=== PATIENT | female | born 1955 | race Caucasian/White ===

== ENCOUNTER 2019-01-16 13:14 | Observation (INO) | payer BC ==
[2019-01-16] MEDS ORDERED: ASPIRIN 325 MG TABLET PO ONE (13:48)
--- NOTE | 2019-01-16 13:53 | Emergency Department Record ---
History of Present Illness - General Chief Complaint: Chest Pain Stated Complaint: CHEST PAIN Time Seen by Provider: 01/16/19 13:38 Source: Patient, Family Mode of Arrival: Ambulatory Limitations: No limitations - History of Present Illness Initial Comments: The patient is here due to an 18 hour hx of retrosternal CP. The onset was at work when she developed the acute onset of sharp stabbing retrosternal pain. She did feel her heart racing at the time and someone did take her pulse which they found at 170 per the patient. The heart racing lasted about 20 minutes and resolved but the pain persisted. Now she is having the discomfort with any deep breath, twisting or walking. She has had some dyspnea but none now and no sweating. The patient denies any cardiac hx. Onset/Timin -: Days(s) Pain Location: Substernal Severity: Moderate Severity scale (1-10): 4 Quality: Aching, Heaviness Consistency: Constant, Intermittent Worsens With: Movement Anginal Symptoms: Diaphoresis, Dyspnea - Related Data Home Medications Medication Instructions Recorded Confirmed Last Taken Alprazolam 0.5 mg PO QHS 01/16/19 01/16/19 1 Day Ago ~01/15/19 Aspirin [Aspirin EC] 81 mg PO DAILY 01/16/19 01/16/19 1 Day Ago ~01/15/19 Dicyclomine HCl 10 mg PO TID PRN 01/16/19 01/16/19 1 Day Ago ~01/15/19 Fluoxetine HCl [Prozac] 20 mg PO DAILY 01/16/19 01/16/19 1 Day Ago ~01/15/19 Hydrochlorothiazide [Hctz] 25 mg PO DAILY 01/16/19 01/16/19 1 Day Ago ~01/15/19 Metoprolol Succinate 25 mg PO QPM 01/16/19 01/16/19 1 Day Ago ~01/15/19 Olopatadine HCl 2.5 ml OP BID PRN 01/16/19 01/16/19 1 Day Ago ~01/15/19 Omeprazole [Prilosec] 20 mg PO DAILY 01/16/19 01/16/19 1 Day Ago ~01/15/19 Rutin/Hesp/Bioflav/C/[id number] 1 each PO DAILY 01/16/19 01/16/19 1 Day Ago [Bioflex Tablet] ~01/15/19 Turmeric/Turmeric Root Extract 1 each PO DAILY 01/16/19 01/16/19 1 Day Ago [Turmeric 500 mg Capsule] ~01/15/19 Allergies Allergy/AdvReac Type Severity Reaction Status Date / Time NO KNOWN DRUG ALLERGY Allergy HYPERSENSIT Uncoded 01/16/19 13:28 IVITY Travel Screening - Travel/Exposure Within Last 30 Days Have you traveled within the last 30 days?: No - Travel/Exposure Within Last Year Have you traveled outside the [place] in the last year?: No - Additonal Travel Details Have you been exposed to anyone with a communicable illness?: No - Travel Symptoms Symptom Screening: None Review of Systems Constitutional: Denies: Chills, Fever Eyes: Denies: Eye discharge ENT: Denies: Congestion Respiratory: Denies: Cough Cardiovascular: Reports: Chest pain. 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.) - GI Hx GI Disorders: Yes Hx Irritable Bowel: Yes - Hx Genitourinary Disorders: No - ENDOCRINE Hx Endocrine Disorders: No Hx Diabetes: No Hx Thyroid Disease: No - MUSCULOSKELETAL Hx Musculoskeletal Disorders: Yes Hx Arthritis: Yes - PSYCH Hx Psych Problems: Yes Hx Anxiety: Yes Hx Depression: Yes - HEMATOLOGY/ONCOLOGY Hx Hematology/Oncology Disorders: Yes Hx Cancer: Yes (skin under left eye) Family Medical History Any Significant Family History?: Yes Hx Heart Disease: Father, Mother, Grandparents Physical Exam - General General Appearance: Alert, Oriented x3, Cooperative, No acute distress - Head Head exam: Atraumatic, Normocephalic, Normal inspection - Eye Eye exam: Normal appearance, PERRL - ENT Throat exam: Normal inspection. negative: Tonsillar erythema, Tonsillar exudate - Neck Neck exam: Normal inspection, Full ROM. negative: Tenderness - Respiratory Respiratory exam: Normal lung sounds bilaterally, Chest wall tenderness (The CP is 100% reproducible with palpation of the anterior chest wall.). negative: Respiratory distress - Cardiovascular Cardiovascular Exam: Regular rate, Normal rhythm, Normal heart sounds. negative: Diastolic murmur - GI/Abdominal GI/Abdominal exam: Soft, Normal bowel sounds. negative: Tenderness - Extremities Extremities exam: Normal inspection, Full ROM, Normal capillary refill. negative: Calf tenderness, Pedal edema, Tenderness - Neurological Neurological exam: Alert. negative: Motor sensory deficit Course Vital Signs 01/16/19 13:16 Temperature 97.5 F L Pulse Rate 72 Respiratory 18 Rate Blood Pressure 163/98 Pulse Ox 99 - Reevaluation(s) Reevaluation #1: The patient is doing better at this time. Her pain is improved with the Toradol and she is resting comfortably and is very hemodynamically stable. I did discuss the lab results with the patient and did recommend hospital admission for the PE and chest pain. The patient does agree with the plan. I also did discuss the case with Penny (BUILDING ARCHITECTURAL DESIGNER) and she does accept the admission for Dr. Baum. 01/16/19 16:03 Medical Decision Making - Data Complexity MDM Data: Labs Ordered and/or Reviewed, X-Ray Ordered and/or Reviewed, EKG Ordered and/or Reviewed - Lab Data Result diagrams: 01/16/19 13:33 01/16/19 13:33 - EKG Data -: EKG Interpreted by Me EKG: No Acute Changes, Normal EKG - Radiology Data Radiology results: Report reviewed (Chest CT: Single embolus in R lower lobe arterial branch, positive for PE.) Disposition Disposition: Admit Clinical Impression: Pulmonary embolism Qualifiers: Pulmonary embolism type: unspecified Chronicity: acute Acute cor pulmonale presence: without acute cor pulmonale Qualified Code(s): I26.99 - Other pulmonary embolism without acute cor pulmonale Disposition: Still a Patient at [facility] Decision to Admit: Admit from ER Decision to Admit Date: 01/16/19 Decision to Admit Time: 16:09 Accepting Physician: Sarika. Time Discussed w/Accepting Physician: 16:10 Condition: (2) Stable Time of Disposition: 16:10 Quality - Quality Measures Quality Measures: N/A - Blood Pressure Screening View Details: Yes Does Patient Have Any of the Following: Active Dx of HTN Blood Pressure Classification: Hypertensive Reading Systolic Measurement: 163 Diastolic Measurement: 98 Screening for High Blood Pressure: Patient Exclusion, Hx of HTN [E4512]
[2019-01-16 14:01] LABS: ABSOLUTE NEUTROPHIL COUNT 4.64; BASO % 0.5 % (0-6); EOS % 1.1 % (0-6); GRAN % 56.1 % (47-80); HEMATOCRIT 44.5 % (35.0-47.0); HEMOGLOBIN 14.7 gm/dl (11.6-16.0); LYMPH % 31.7 % (16-45); MEAN CELL VOLUME 89.7 fl (81-97); MEAN CORPUSCULAR HEMOGLOBIN 29.6 pg (27-33); MONO % 10.6 % (0-9); PLATELET COUNT 312 K/uL (130-400); RED BLOOD COUNT 4.96 M/uL (3.80-5.40); RED CELL DISTRIBUTION WIDTH 12.7 % (11.5-14.5); WHITE BLOOD COUNT W/O DIFF 8.3 K/uL (4.2-12.2)
[2019-01-16 14:09] LABS: BLOOD UREA NITROGEN 15 mg/dL (8-23); CREATININE 0.5 mg/dL (0.5-0.9); EST GLOMERULAR FILTRATION RATE > 60 mL/min; TOTAL PROTEIN 7.5 g/dL (6.6-8.7)
[2019-01-16 14:11] LABS: GLUCOSE,RANDOM 106 mg/dL (74-109)
[2019-01-16 14:13] LABS: INR 1.1; PARTIAL THROMBOPLASTIN TIME 26.1 SECONDS (24.5-39.1); PROTHROMBIN TIME (PATIENT) 11.3 SECONDS (9.5-12.1)
[2019-01-16 14:14] LABS: ALB/GLOB RATIO 1.8 (1.1-1.8); ALBUMIN 4.8 g/dL (4.0-5.0); ALKALINE PHOSPHATASE 38 U/L (35-104); ALT/SGPT 27 U/L (<33); AST/SGOT 31 U/L (10.0-35.0); CREATINE PHOSPHOKINASE 110 U/L (26-192)
[2019-01-16 14:17] LABS: CKMB 3.1 ng/mL (<3.77)
[2019-01-16] MEDS ORDERED: KETOROLAC 30 MG/ML VIAL IVP ONE (14:20)
[2019-01-16] MEDS ORDERED: 0.9 % SODIUM CHLORIDE 1,000 ML BAG IV ONE (14:20)
[2019-01-16] MEDS ORDERED: HEPARIN SODIUM 1000 UNIT/1 ML 10ML VIAL IVP ONE (15:58)
[2019-01-16] MEDS ORDERED: HEPARIN SODIUM/D5W 25,000 UNITS/500 ML BAG IV SCH ×2 (16:00→17:37)
[2019-01-16] MEDS ORDERED: MORPHINE SULFATE 5 MG/ML VIAL IVP PRN (16:21)
[2019-01-16] MEDS ORDERED: ONDANSETRON HCL IV 4 MG/2 ML VIAL IVP PRN (16:21)
[2019-01-16] MEDS ORDERED: METOPROLOL SUCC 25 MG TAB.ER PO SCH ×2 (17:37→20:00)
[2019-01-16] MEDS ORDERED: DICYCLOMINE HCL 10 MG CAPSULE PO PRN (17:37)
[2019-01-16] MEDS ORDERED: ACETAMINOPHEN 325 MG TAB PO PRN (17:37)
[2019-01-16] MEDS ORDERED: OLOPATADINE EYE MC PRN (18:00)
[2019-01-16] MEDS ORDERED: FLUOXETINE HCL 20 MG CAPSULE PO SCH (20:00)
[2019-01-16] MEDS: APIXABAN 5MG TABLET PO SCH (21:24)
[2019-01-16] MEDS ORDERED: ALPRAZOLAM 0.25 MG TABLET PO SCH (22:00)
[2019-01-17] MEDS ORDERED: DIPHENHYDRAMINE HCL 25 MG CAPSULE PO PRN (00:14)
[2019-01-17] MEDS ORDERED: PANTOPRAZOLE SODIUM 40 MG TABLET PO SCH (07:00)
--- NOTE | 2019-01-17 07:13 | RADIOLOGY REPORT ---
EXAM: CHEST, TWO VIEWS HISTORY: CHEST PAIN, LEFT ARM NUMBNESS, AND DIZZINESS SINCE YESTERDAY. TECHNIQUE: PA and lateral upright views of the chest were obtained. Comparison: 06/24/13. FINDINGS: The heart, mediastinum, and pulmonary vasculature are normal. The lungs are clear. There is no pneumothorax or effusion. Degenerative changes are present within the spine. There are no acute osseous abnormalities. IMPRESSION: NO ACUTE CHEST PATHOLOGY. JOB NUMBER: [id number] MTDD
--- NOTE | 2019-01-17 07:20 | CT ANGIOGRAM REPORT ---
EXAM: CT ANGIOGRAM OF THE CHEST WITH POST PROCESSING HISTORY: CHEST PAIN WITH ELEVATED D-DIMER. DIFFICULTY BREATHING. LEFT ARM WEAKNESS. TECHNIQUE: Standard CT angiography of the chest was performed with post processing following the bolus administration of 78 ml of Omnipaque 350. Additional coronal and sagittal maximum intensity projection reformatted images were performed on an independent workstation under concurrent supervision. Comparison: 07/16/10. FINDINGS: There is a small embolus within a right lower lobe pulmonary arterial branch along the posterior medial aspect. The remaining pulmonary arterial tree is normal. No other emboli are identified. The heart is normal. The aorta is normal in caliber. There is no dissection. There is no mediastinal or hilar lymphadenopathy. A small hiatal hernia is present. Dependent atelectasis is noted within both lungs. A 5 mm subpleural nodule within the lateral right middle lobe is unchanged. There are no acute pulmonary infiltrates or effusions. The chest wall and axillary regions are normal. The visualized portions of the upper abdomen are unremarkable. IMPRESSION: 1. SMALL EMBOLUS WITHIN A RIGHT LOWER LOBE PULMONARY ARTERIAL BRANCH. 2. NO OTHER ACUTE FINDINGS. 3. STABLE NONCALCIFIED NODULE WITHIN THE RIGHT MIDDLE LOBE. 4. SMALL HIATAL HERNIA. JOB NUMBER: [id number] MTDD
[2019-01-17] MEDS ORDERED: [UNRECOGNIZED DRUG - REMARK] PO ONE (08:05)
[2019-01-17] MEDS: APIXABAN 5MG TABLET PO SCH (09:02)
--- NOTE | 2019-01-17 09:06 | History & Physical ---
History of Present Illness - Date of Service Date of Service for History & Physical: 01/17/19 - History of Present Illness Admitting Diagnosis: 1. Acute Chest Pain with Pulmonary Embolism. History of Present Illness: 01/16/19 Pt was at work, felt sudden onset of sharp chest pain, tachycardia, and diaphoresis. Pt was driven home by her granddaughter but was later convinced to present to [facility] ER for the continued "soreness" in her chest. PMH of depression/ anx, hypertension. Fam h/o blood clots (PE and CVA) on paternal side. Father had numerous MIs and clots, from age 62-68 (CVA cause of ), grandfather also has significant h/o clots. Maternal fam h/o DM. 97.5, HR 72, BP 163/98, RR 18, 99% RA WBC 8.3, Hgb 14.7, Hct 44.5, plt 312 D-dimer 1.47, PT 11.3, INT 1.1, aPTT 26.1 Na 142, K 4, Cl 103, Anion gap 13, BUN 15, Cr 0.5, GFR>60, Glucose 106, LFTs wnl Trop <0.010 TSH 1.8 EKG NRS 66 CXR neg CTA small PE, RLL, stable noncalcified nodule within right middle lobe, small hiatal hernia Pt was started on heparin gtt in ER, transitioned to Eliquis upon arrival to the floor. 01/17/19 pt resting comfortably in bed, no shortness of breath, denies chest pain, moving all extremities with difficulty Pt tolerating breakfast, denies anxiety at this time. Lungs CTA, grade III/ systolic murmur note (no h/o), pulses 3+ DP/PT with no edema noted. Chest pain is reproducible with palpation but pain free outside of palpation. Venous doppler ordered, completed and awaiting results ECHO ordered and pending completion POC continue Eliquis 10mg PO BID for 7 days, change to 5mg BID after that. Awaiting ECHO results but preliminary plan is to d/c with holter monitor, f/u PCP 01/19/19, and cardiology f/u 01/31/19. 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 in the last year?: No - Additonal Travel Details Have you been exposed to anyone with a communicable illness?: No - Travel Symptoms Symptom Screening: None Review of Systems Constitutional: Denies: Chills, Fever Eyes: Denies: Eye discharge ENT: Denies: Congestion Respiratory: Denies: Cough Cardiovascular: Reports: Chest pain (with palpation). 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.) - GI Hx GI Disorders: Yes Hx Irritable Bowel: Yes - Hx Genitourinary Disorders: No - ENDOCRINE Hx Endocrine Disorders: No Hx Diabetes: No Hx Thyroid Disease: No - MUSCULOSKELETAL Hx Musculoskeletal Disorders: Yes Hx Arthritis: Yes - PSYCH Hx Psych Problems: Yes Hx Anxiety: Yes Hx Depression: Yes - HEMATOLOGY/ONCOLOGY Hx Hematology/Oncology Disorders: Yes Hx Cancer: Yes (skin under left eye) Family Medical History Any Significant Family History?: Yes Hx Heart Disease: Father, Mother, Grandparents Hx HTN: Father, Grandparents Hx Stroke: Father, Grandparents H&P Meds/Allergies - Allergies Allergies: Allergies Allergy/AdvReac Type Severity Reaction Status Date / Time NO KNOWN DRUG ALLERGY Allergy HYPERSENSIT Uncoded 01/16/19 13:28 IVITY - Home Medications Home Medications Medication Instructions Recorded Confirmed Last Taken Alprazolam 0.5 mg PO QHS 01/16/19 01/16/19 1 Day Ago ~01/15/19 Aspirin [Aspirin EC] 81 mg PO DAILY 01/16/19 01/16/19 1 Day Ago ~01/15/19 Dicyclomine HCl 10 mg PO TID PRN 01/16/19 01/16/19 1 Day Ago ~01/15/19 Fluoxetine HCl [Prozac] 20 mg PO DAILY 01/16/19 01/16/19 1 Day Ago ~01/15/19 Hydrochlorothiazide [Hctz] 25 mg PO DAILY 01/16/19 01/16/19 1 Day Ago ~01/15/19 Metoprolol Succinate 25 mg PO QPM 01/16/19 01/16/19 1 Day Ago ~01/15/19 Olopatadine HCl 2.5 ml OP BID PRN 01/16/19 01/16/19 1 Day Ago ~01/15/19 Omeprazole [Prilosec] 20 mg PO DAILY 01/16/19 01/16/19 1 Day Ago ~01/15/19 Rutin/Hesp/Bioflav/C/[id number] 1 each PO DAILY 01/16/19 01/16/19 1 Day Ago [Bioflex Tablet] ~01/15/19 Turmeric/Turmeric Root Extract 1 each PO DAILY 01/16/19 01/16/19 1 Day Ago [Turmeric 500 mg Capsule] ~01/15/19 - Active Medications Active Medications: Current Medications Acetaminophen (Tylenol 325mg) 650 mg PO Q4H PRN PRN Reason: PAIN - MILD(1-4)/FEVER Alprazolam (Xanax) 0.5 mg PO QHS [facility] Last Admin: 01/16/19 21:24 Dose: 0.5 mg Documented by: Apixaban (Eliquis) 10 mg PO BID [facility] Last Admin: 01/16/19 21:24 Dose: 10 mg Documented by: Aspirin (Ecotrin (Ec)) 81 mg PO DAILY [facility] Dicyclomine HCl (Bentyl) 10 mg PO TID PRN PRN Reason: ABDOMINAL PAIN Diphenhydramine HCl (Benadryl Capsule) 50 mg PO QHS PRN PRN Reason: insomnia or itching Last Admin: 01/17/19 00:23 Dose: 50 mg Documented by: Fluoxetine HCl (Prozac) 20 mg PO 1999 [facility] Last Admin: 01/16/19 20:32 Dose: 20 mg Documented by: Hydrochlorothiazide (Hctz 25mg) 25 mg PO DAILY [facility] Metoprolol Succinate (Toprol Xl) 25 mg PO 1999 [facility] Last Admin: 01/16/19 20:32 Dose: 25 mg Documented by: Morphine Sulfate (Morphine Sulfate) 2 mg IVP Q4H PRN PRN Reason: PAIN - MILD (1-4) Stop: 01/23/19 16:22 Ondansetron HCl (Zofran) 4 mg IVP Q4H PRN PRN Reason: NAUSEA Pantoprazole Sodium (Protonix) 40 mg PO DAILYAC [facility] Last Admin: 01/17/19 07:05 Dose: 40 mg Documented by: Patient Own Med: Olopatadine Eye Drops 1 each MC BID PRN PRN Reason: ITCHING Physical Exam - Vital Signs Vital Signs: Vital Signs - Last 24 Hrs Temp Pulse Pulse Resp BP BP BP 01/17/19 06:00 97.9 F 71 18 126/68 01/17/19 00:00 97.8 F 59 L 18 130/78 01/16/19 20:00 97.7 F 58 L 20 141/87 01/16/19 17:37 98.0 F 63 20 166/88 01/16/19 15:27 57 L 16 165/82 01/16/19 14:43 71 17 01/16/19 13:16 97.5 F L 72 18 163/98 Pulse Ox 01/17/19 06:00 96 01/17/19 00:00 96 01/16/19 20:00 98 01/16/19 17:37 97 01/16/19 15:27 98 01/16/19 14:43 98 01/16/19 13:16 99 - General General Appearance: Alert, Oriented x3, Cooperative, No acute distress Limitations: No limitations - Head Head exam: Atraumatic, Normocephalic, Normal inspection - Eye Eye exam: Normal appearance, PERRL - ENT ENT exam: Normal exam Ear exam: Normal external inspection Nasal Exam: Normal inspection Mouth exam: Normal external inspection Throat exam: Normal inspection. negative: Tonsillar erythema, Tonsillar exudate - Neck Neck exam: Normal inspection, Full ROM. negative: Tenderness - Respiratory Respiratory exam: Normal lung sounds bilaterally, Chest wall tenderness (The CP is 100% reproducible with palpation of the anterior chest wall.). negative: Respiratory distress - Cardiovascular Cardiovascular Exam: Regular rate, Normal rhythm, Systolic murmur. negative: Normal heart sounds, Diastolic murmur Peripheral Pulses: 3+: Radial (R), Radial (L), Dorsalis Pedis (R), Dorsalis Pedis (L) - GI/Abdominal GI/Abdominal exam: Soft, Normal bowel sounds. negative: Tenderness - Rectal Rectal exam: Deferred - exam: Deferred - Extremities Extremities exam: Normal inspection, Full ROM, Normal capillary refill. negative: Calf tenderness, Pedal edema, Tenderness - Neurological Neurological exam: Alert. negative: Motor sensory deficit - Psychiatric Psychiatric exam: Normal affect, Normal mood - Skin Skin exam: Dry, Intact, Warm Results - Labs Result Diagrams: 01/16/19 13:33 01/16/19 13:33 Labs Last 24 Hours: Laboratory Results - last 24 hr 01/16/19 01/16/19 01/16/19 13:33 13:33 13:33 WBC 8.3 RBC 4.96 Hgb 14.7 Hct 44.5 MCV 89.7 MCH 29.6 MCHC 33.0 RDW 12.7 Plt Count 312 MPV 10.0 Gran % 56.1 Lymphocytes % 31.7 Monocytes % 10.6 H Eosinophils % 1.1 Basophils % 0.5 Absolute Neutrophils 4.64 PT 11.3 INR 1.1 APTT 26.1 D-Dimer 1.47 H Sodium 142 Potassium 4.0 Chloride 103 Carbon Dioxide 26.0 Anion Gap 13.0 BUN 15 Creatinine 0.5 Estimated GFR > 60 Random Glucose 106 Calcium 10.2 Total Bilirubin 0.70 AST 31 ALT 27 Alkaline Phosphatase 38 Creatine Kinase 110 CK-MB (CK-2) 3.1 Troponin T < 0.010 Total Protein 7.5 Albumin 4.8 Globulin 2.7 Albumin/Globulin Ratio 1.8 TSH 1.80 01/16/19 01/16/19 01/17/19 20:00 20:00 04:00 WBC RBC Hgb Hct MCV MCH MCHC RDW Plt Count MPV Gran % Lymphocytes % Monocytes % Eosinophils % Basophils % Absolute Neutrophils PT INR APTT D-Dimer Sodium Potassium Chloride Carbon Dioxide Anion Gap BUN Creatinine Estimated GFR Random Glucose Calcium Total Bilirubin AST ALT Alkaline Phosphatase Creatine Kinase CK-MB (CK-2) Troponin T Cancelled < 0.010 < 0.010 Total Protein Albumin Globulin Albumin/Globulin Ratio TSH - Imaging and Cardiology Chest x-ray Status: Report reviewed CT scan - chest Status: Report reviewed VTE H&P Assessment - Risk for VTE Risk for VTE: Yes Risk Level: High Risk Assessment Date: 01/17/19 Risk Assessment Time: 09:14 VTE Orders Placed or Will Be Placed: No VTE Reason for No Prophylaxis: Contraindicated (pt on eliquis) Plan - Detailed Diagnosis and Plan (1) Pulmonary embolism Current Visit: Yes Status: Acute Qualifiers: Pulmonary embolism type: unspecified Chronicity: acute Acute cor pulmonale presence: without acute cor pulmonale Qualified Code(s): I26.99 - Other pulmonary embolism without acute cor pulmonale Base Code: I26.99 - OTHER PULMONARY EMBOLISM WITHOUT ACUTE COR PULMONALE Comment: 01/17/19 -PE noted CTA, RLL -started on heparin gtt but transitioned to Eliquis 10mg PO BID immediately after admission -Venous doppler BLE ordered and awaiting results -Pt denies any risk factors of long travel, recent surgeries/MVA, irregular heart beat, personal h/o clots, or estrogen use. (2) Murmur Current Visit: Yes Status: Acute Base Code: R01.1 - CARDIAC MURMUR, U NSPECIFIED Comment: 01/17/19 -new onset, ECHO ordered -no BLE edema noted (3) Chest pain Current Visit: Yes Status: Acute Base Code: R07.9 - CHEST PAIN, UNSPECIFIED Comment: 01/17/19 -EKG NSR -trop neg x3, tele neg for rhythm changes -ECHO ordered, cardiology f/u next week -Pain was reported as "racing heart and then sorness" denies pressure or tightne ss -pain reproducible with palpation (4) Full code status Current Visit: Yes Status: Acute Base Code: Z78.9 - OTHER SPECIFIED HEALTH STATUS Comment: 01/17/19 -full code (5) DVT prophylaxis Current Visit: Yes Status: Acute Base Code: Z29.9 - ENCOUNTER FOR PROPHYLACTIC MEASURES, UNSPECIFIED Comment: 01/17/19 -high risk as pt has current, new onset PE, on Eliquis 10mg PO BID
[2019-01-17] MEDS ORDERED: HYDROCHLOROTHIAZIDE 25 MG TABLET PO SCH (10:00)
[2019-01-17] MEDS ORDERED: ASPIRIN 81 MG TABEC PO SCH (10:00)
--- NOTE | 2019-01-17 15:33 | Discharge Summary ---
Providers Discharge Summary Date: 01/17/19 Date of admission: 01/16/19 16:24 Expected Date of Discharge: 01/17/19 Attending physician: CHARLEY VALADEZ Primary care physician: SHERLEY GARCIA M.D. 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 Physical Exam - Vital Signs Vital Signs: Vital Signs - Last 24 Hrs Temp Pulse Resp BP BP Pulse Ox 01/17/19 09:47 97.9 F 63 18 114/72 98 01/17/19 09:00 71 18 01/17/19 06:00 97.9 F 71 18 126/68 96 01/17/19 00:00 97.8 F 59 L 18 130/78 96 01/16/19 20:00 97.7 F 58 L 20 141/87 98 01/16/19 17:37 98.0 F 63 20 166/88 97 - General General Appearance: Alert, Oriented x3, Cooperative, No acute distress Limitations: No limitations - Head Head exam: Atraumatic, Normocephalic, Normal inspection - Eye Eye exam: Normal appearance, PERRL - ENT ENT exam: Normal exam Ear exam: Normal external inspection Nasal Exam: Normal inspection Mouth exam: Normal external inspection Throat exam: Normal inspection. negative: Tonsillar erythema, Tonsillar exudate - Neck Neck exam: Normal inspection, Full ROM. negative: Tenderness - Respiratory Respiratory exam: Normal lung sounds bilaterally, Chest wall tenderness (The CP is 100% reproducible with palpation of the anterior chest wall.). negative: Respiratory distress - Cardiovascular Cardiovascular Exam: Regular rate, Normal rhythm, Systolic murmur. negative: Normal heart sounds, Diastolic murmur Peripheral Pulses: 3+: Radial (R), Radial (L), Dorsalis Pedis (R), Dorsalis Pedis (L) - GI/Abdominal GI/Abdominal exam: Soft, Normal bowel sounds. negative: Tenderness - Rectal Rectal exam: Deferred - exam: Deferred - Extremities Extremities exam: Normal inspection, Full ROM, Normal capillary refill. negative: Calf tenderness, Pedal edema, Tenderness - Neurological Neurological exam: Alert. negative: Motor sensory deficit - Psychiatric Psychiatric exam: Normal affect, Normal mood - Skin Skin exam: Dry, Intact, Warm Hospitalization - Hospitalization Admission Diagnosis: 1. Acute Chest Pain with Pulmonary Embolism. - Problem List/Discharge Diagnosis (1) Pulmonary embolism Current Visit: Yes Status: Acute Discharge Diagnosis: Pulmonary embolism type: unspecified Chronicity: acute Acute cor pulmonale presence: without acute cor pulmonale Qualified Code(s): I26.99 - Other pulmonary embolism without acute cor pulmonale Base Code: I26.99 - OTHER PULMONARY EMBOLISM WITHOUT ACUTE COR PULMONALE Comment: 01/17/19 -PE noted CTA, RLL -started on heparin gtt but transitioned to Eliquis 10mg PO BID immediately after admission -Venous doppler BLE ordered and awaiting results -Pt denies any risk factors of long travel, recent surgeries/MVA, irregular heart beat, personal h/o clots, or estrogen use. (2) Murmur Current Visit: Yes Status: Acute Base Code: R01.1 - CARDIAC MURMUR, UNSPECIFIED Comment: 01/17/19 -new onset, ECHO ordered -no BLE edema noted -ECHO report shows EF 55-60%, trace regurg, no pulmonary pressure concerns (3) Chest pain Current Visit: Yes Status: Acute Base Code: R07.9 - CHEST PAIN, UNSPECIFIED Comment: 01/17/19 -EKG NSR -trop neg x3, tele neg for rhythm changes -ECHO ordered, cardiology f/u next week -Pain was reported as "racing heart and then sorness" denies pressure or tightness -pain reproducible with palpation (4) Full code status Current Visit: Yes Status: Acute Base Code: Z78.9 - OTHER SPECIFIED HEALTH STATUS Comment: 01/17/19 -full code (5) DVT prophylaxis Current Visit: Yes Status: Acute Base Code: Z29.9 - ENCOUNTER FOR PROPHYLACTIC MEASURES, UNSPECIFIED Comment: 01/17/19 -high risk as pt has current, new onset PE, on Eliquis 10mg PO BID - Hospitalization Course Disposition: Home, Self-Care Hospital Course: 01/16/19 Pt was at work, felt sudden onset of sharp chest pain, tachycardia, and reagan phoresis. Pt was driven home by her granddaughter but was later convinced to present to [facility] ER for the continued "soreness" in her chest. PMH of depression/anx, hypertension. Fam h/o blood clots (PE and CVA) on paternal side. Father had numerous MIs and clots, from age 62-68 (CVA cause of ), grandfather also has significant h/o clots. Maternal fam h/o DM. 97.5, HR 72, BP 163/98, RR 18, 99% RA WBC 8.3, Hgb 14.7, Hct 44.5, plt 312 D-dimer 1.47, PT 11.3, INT 1.1, aPTT 26.1 Na 142, K 4, Cl 103, Anion gap 13, BUN 15, Cr 0.5, GFR>60, Glucose 106, LFTs wnl Trop <0.010 TSH 1.8 EKG NRS 66 CXR neg CTA small PE, RLL, stable noncalcified nodule within right middle lobe, small hiatal hernia Pt was started on heparin gtt in ER, transitioned to Eliquis upon arrival to the floor. 01/17/19 pt resting comfortably in bed, no shortness of breath, denies chest pain, moving all extremities with difficulty Pt tolerating breakfast, denies anxiety at this time. Lungs CTA, grade III/ systolic murmur note (no h/o), pulses 3+ DP/PT with no edema noted. Chest pain is reproducible with palpation but pain free outside of palpation. Venous doppler ordered, completed and awaiting results ECHO ordered and pending completion POC continue Eliquis 10mg PO BID for 7 days, change to 5mg BID after that. Awaiting ECHO results but preliminary plan is to d/c with holter monitor, f/u PCP 01/19/19, and cardiology f/u 01/31/19. 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) Procedures: Imaging and X-Rays 01/16/19 13:48 CHEST 2 VIEWS [RAD] Stat 01/16/19 14:25 CHEST CTA w contrast [CTA] Stat 01/17/19 07:07 VENOUS DOPPLER LOWER EXT JENNIFER [US] Stat Cardiology Procedures 01/16/19 13:34 EKG NOW 01/16/19 17:37 Coupon Manifest Clerk .Continuous EKG QDX2@0600 01/17/19 10:19 Echo W/CF & Cardiac Doppler NOW 01/17/19 10:44 Echo W/CF & Cardiac Doppler NOW 01/17/19 14:11 Holter Monitor NOW Abnormal Labs: Abnormal Lab Results 01/16/19 01/16/19 Range/Units 13:33 13:33 Monocytes % 10.6 H (0-9) % D-Dimer 1.47 H (0-0.59) mg/L FEU Condition at Discharge: (2) Stable Discharge Medications - Discharge Medications Prescriptions: Apixaban [Eliquis] 5 mg PO BID 30 Days #50 tablet Home Medications: Ambulatory Orders Alprazolam 0.5 mg PO QHS 01/16/19 [Last Taken 1 Day Ago ~01/15/19] Dicyclomine HCl 10 mg PO TID PRN 01/16/19 [Last Taken 1 Day Ago ~01/15/19] Fluoxetine HCl [Prozac] 20 mg PO DAILY 01/16/19 [Last Taken 1 Day Ago ~01/15/19] Hydrochlorothiazide [Hctz] 25 mg PO DAILY 01/16/19 [Last Taken 1 Day Ago ~01/15/19] Metoprolol Succinate 25 mg PO QPM 01/16/19 [Last Taken 1 Day Ago ~01/15/19] Olopatadine HCl 2.5 ml OP BID PRN 01/16/19 [Last Taken 1 Day Ago ~01/15/19] Omeprazole [Prilosec] 20 mg PO DAILY 01/16/19 [Last Taken 1 Day Ago ~01/15/19] Rutin/Hesp/Bioflav/C/Cqqian035 [Bioflex Tablet] 1 each PO DAILY 01/16/19 [Last Taken 1 Day Ago ~01/15/19] Turmeric/Turmeric Root Extract [Turmeric 500 mg Capsule] 1 each PO DAILY 01/16/19 [Last Taken 1 Day Ago ~01/15/19] Acetaminophen [Tylenol 325Mg] 650 mg PO Q4H PRN tablet 01/17/19 [Last Taken Unknown] Apixaban [Eliquis] 5 mg PO BID 30 Days #50 tablet 01/17/19 [Last Taken Unknown] Apixaban [Eliquis] 10 mg PO BID tablet 01/17/19 [Last Taken Unknown] Discharge Plan - Discharge Instructions Activity at Discharge: Increase Activity as Tolerated Diet at Discharge: Advance to Usual Diet Instructions: Pulmonary Embolism (DC) Additional Instructions: Activity: TOLERATED Diet: TOLERATED Consults: [] Follow Up: [] Dressing/Wound Care: (Type) (Change) Additional: [] Appointments have been scheduled for you as follows: -Friday 01/19 at 10:45AM with Penny Zuniga at [facility]. -Wednesday 01/31 at 2:00PM with MARIANGEL Barker with [facility]. Please arrive 15 minutes early and bring your ID and insurance card. Phone # is [phone]. Quality Measures - Quality Measures Quality Measures: Documentation of Current Medications in Medical Record, Screening for High Blood Pressure and F/U Documented - Current Medications Quality Measure: Measure #130: Documentation of Current Medications Documentation of Current Medications: <Current Medications Documented/Reviewed> [[id number]] - Blood Pressure Screening Quality Measure: Screening for High Blood Pressure and Follow-Up Documented Does Patient Have Any of the Following: Active Dx of HTN Blood Pressure Classification: Hypertensive Reading Systolic Measurement: 163 Diastolic Measurement: 98 Screening for High Blood Pressure: Patient Exclusion, Hx of HTN [G9744] - Elder Abuse Suspicion Index EASI Reference Information: Monica PANDA, Franky C, Anthony D, Rocio Baer.Development and validation of a tool to assist physicians identification of elder abuse: The Elder Abuse Suspicion Index (EASI ). Journal of Elder Abuse and Neglect, 2008; 20 (3): 276-300.
--- NOTE | 2019-01-18 07:25 | US VENOUS DOPPLER REPORT ---
EXAM: BILATERAL LOWER EXTREMITY VENOUS DOPPLER ULTRASOUND HISTORY: RIGHT LOWER LOBE PULMONARY EMBOLUS. TECHNIQUE: Duplex Doppler evaluation of the bilateral lower extremity deep venous system was performed. Bolaños scale, color Doppler, and Duplex Doppler imaging were utilized. Comparison: Previous chest CTA dated 01/16/19. No prior Doppler studies are available for comparison. FINDINGS: There is normal flow, augmentation, and compression throughout the bilateral lower extremity deep venous system. There is no evidence for deep venous thrombosis within either lower extremity. IMPRESSION: NORMAL BILATERAL LOWER EXTREMITY VENOUS DOPPLER EXAMINATION. THERE IS NO EVIDENCE FOR DVT. JOB NUMBER: [id number] [facility]
== END 2019-01-17 18:20 | disposition home or self-care (01) ==
LOC: ER 13:14 → MEDSURG 16:24
PROVIDERS: ADMIT Internal Medicine; ATTEND Internal Medicine
DX: I26.99 Other pulmonary embolism without acute cor pulmonale (principal); R01.1 Cardiac murmur, unspecified; I10 Essential (primary) hypertension; D36.10 Benign neoplasm of peripheral nerves and autonomic nervous system, unspecified; K58.9 Irritable bowel syndrome, unspecified; M19.90 Unspecified osteoarthritis, unspecified site; Z87.891 Personal history of nicotine dependence; Z85.828 Personal history of other malignant neoplasm of skin; F41.8 Other specified anxiety disorders
CPT/HCPCS: 99285 ×2; 96365; 96375; 82550; 85025; 85730; 85610; 82553; 80053; 84443; 84484 ×2; 85379; 71046; 93970; 71275; 93005 ×2; 93010; 93306; 93225; 93226; G0378 ×2; Q9967; J1885; J3490 ×2; 99220; J7030